=== PATIENT | male | born 1960 | race Caucasian/White ===

== ENCOUNTER → 2020-04-16 | Day surgery (SDC) | payer BC, OTHER ==
[~2020-04-16] MED LIST: ASPIR 8181 MG PO; CALCIUM CARBON500 MG PO; CENTRUM SILVER1 EAC3 PO; FENTANYL CITRATE/PF 100MCG/2 ML INJ ONE; HYDROCHLOROTHIA25 MG PO; HYOSCYAMINE 0.125 MG TAB ONE; HYOSCYAMINE 0.125 MG TAB PO ONE; IRBESARTAN150 MG PO; IRON325 M1 PO; LIDOCAINE HCL 2% LOCAL INJ 5 ML SDV VIAL INJ ONE; METHSCOPOLAMINE5 MG PO; METOPROLOL SUCC25 MG PO; MIDAZOLAM HCL 2 MG/2 ML VIAL ONE; PANTOPRAZOLE SO40 MG PO; PROPOFOL IV EMULSION 10 MG/ML 20 ML VIAL ONE; SIMVASTATIN40 MG PO; VALSARTAN-HCTZ1 EAC4 PO; VITAMIN C 250250 MG PO; VITAMIN D350 MCG PO
[2020-04-16 12:30] VITALS: BP 124/88
--- NOTE | 2020-04-16 13:38 | Operative Report ---
DATE OF PROCEDURE: 04/16/2020 SURGEON: Israel Pennington MD PROCEDURE: Colonoscopy with polypectomy. INDICATIONS FOR COLONOSCOPY: Surveillance colonoscopy, personal history of colon polyps. MEDICATIONS: The patient was done under MAC, please see anesthesiologist's note. PROCEDURE IN DETAIL: With the patient in the left lateral decubitus position, a flexible fiberoptic Olympus colonoscope was inserted into the rectum with ease and advanced all the way to the cecum. Mucosa overlying the cecum appeared to be within normal limits. One polyp was cold snared from the ascending colon. The transverse appeared to be within normal limits. One polyp was hot snared from the descending colon. Minimal diverticulosis was noted in the sigmoid colon. One polyp was hot biopsied and one polyp was hot snared in the sigmoid colon. Three polyps were hot biopsied in the rectum. The scope was then retroflexed into the distal rectum and small internal hemorrhoids were noted, none of which was actively bleeding. The scope was then straightened out, it was subsequently withdrawn, and the patient tolerated the procedure well. IMPRESSION: 1. Ascending colon polyp, cold snared. 2. Descending colon polyp, hot snared. 3. Diverticulosis. 4. Sigmoid colon polyps x2, one hot snared one hot biopsied. 5. Rectal polyps x3, hot biopsied. 6. Internal hemorrhoids, none actively bleeding. PLAN: Follow up histology. Initiate high-fiber, low-fat diet. Initiate high-fiber supplement. The patient might benefit from a followup colonoscopy in 3 years. Israel Pennington MD [facility] [place] /[id number] cc: Massimo Bach MD
== END | disposition home or self-care (01) ==
LOC: OR 08:07
PROVIDERS: ATTEND Internal Medicine Gastroenterology
DX: Z09 Encounter for follow-up examination after completed treatment for conditions other than malignant neoplasm (principal); D12.2 Benign neoplasm of ascending colon; D12.4 Benign neoplasm of descending colon; D12.5 Benign neoplasm of sigmoid colon; K62.1 Rectal polyp; K57.30 Diverticulosis of large intestine without perforation or abscess without bleeding; K64.8 Other hemorrhoids; K21.9 Gastro-esophageal reflux disease without esophagitis; I10 Essential (primary) hypertension; N20.0 Calculus of kidney; Z01.810 Encounter for preprocedural cardiovascular examination; Z01.812 Encounter for preprocedural laboratory examination; Z11.59 Encounter for screening for other viral diseases; Z79.82 Long term (current) use of aspirin; Z68.34 Body mass index [BMI] 34.0-34.9, adult
CPT/HCPCS: 45384; 45385; 87635; 93005; J2001; J2250; J2704; J3010; 45378

== ENCOUNTER → 2023-08-24 | Day surgery (SDC) | payer BC ==
[~2023-08-24] MED LIST changes: +ALLERGY4 MG; -HYOSCYAMINE 0.125 MG TAB ONE; -HYOSCYAMINE 0.125 MG TAB PO ONE; +HYOSCYAMINE SULFATE 0.5 MG/ML INJ ONE; +LACTATED RINGER'S 1,000 ML BAG IV ONE; +LACTATED RINGER'S 1,000 ML ONE; +METOCLOPRAMIDE HCL 10 MG/2ML VIAL ONE; +ZINC
[2023-08-24 11:15] VITALS: BP 107/73; PULSE 71; RESP 18; O2SAT 98
== END | disposition home or self-care (01) ==
LOC: OR 06:34
PROVIDERS: ATTEND Internal Medicine Gastroenterology
DX: Z09 Encounter for follow-up examination after completed treatment for conditions other than malignant neoplasm (principal); D12.0 Benign neoplasm of cecum; D12.2 Benign neoplasm of ascending colon; K57.30 Diverticulosis of large intestine without perforation or abscess without bleeding; K64.8 Other hemorrhoids; K21.9 Gastro-esophageal reflux disease without esophagitis; Z71.3 Dietary counseling and surveillance; I10 Essential (primary) hypertension; Z71.89 Other specified counseling; E78.5 Hyperlipidemia, unspecified; Z01.810 Encounter for preprocedural cardiovascular examination; Z79.899 Other long term (current) drug therapy; Z68.35 Body mass index [BMI] 35.0-35.9, adult; Z87.891 Personal history of nicotine dependence
CPT/HCPCS: 45380; 45385; 93005; J1980; J2001; J2250; J2704; J2765; J3010; J7121; 45378